=== PATIENT | female | born 1980 | race Caucasian/White ===

== ENCOUNTER 2016-08-17 06:22 | Day surgery (SDC) | payer OTHER ==
[2016-08-15 09:46] LABS: MANUAL DIFF NEEDED? NO; URINE MICRO REVIEW NEEDED? NO; URINE SOURCE CLEAN CATCH
[2016-08-15 10:12] LABS: BASO% 0.6 % (0.0-0.8); EOS# 0.21 X1000 (0.0-0.7); EOS% 2.6 % (0.0-10.0); HEMATOCRIT 39.3 % (37.0-47.0); HEMOGLOBIN 13.5 g/dL (12.0-16.0); IMM GRAN# 0.02 X1000 (0.0-0.04); IMM GRAN% 0.2 % (0.0-0.5); LYMPH# 2.62 X1000 (1.2-3.4); LYMPH% 32.2 % (20.5-51.1); MCH 30.6 PG (27-31); MCHC 34.4 g/dL (33-37); MCV 89.1 FL (81-99); MONO# 0.56 X1000 (0.11-0.59); MONO% 6.9 % (1.7-9.3); MPV 10.3 FL (7.4-10.4); NEUT% 57.5 % (42.2-75.2); PLT 324 X1000 (130-400); RBC 4.41 XMIL (4.2-5.4)
[2016-08-15 11:09] LABS: AGAP 13; ALBUMIN 4.2 g/dL (3.5-5.0); ALKALINE PHOSPHATASE 50 U/L (32-104); BUN 9 mg/dL (8-22); CALCIUM 9.7 mg/dL (8.8-10.2); CHLORIDE 100 mmol/L (98-107); COSMO 275; GOT 14 U/L (10-30); GPT 16 U/L (10-36); POTASSIUM 4.2 mmol/L (3.5-5.1); SODIUM 138 mmol/L (136-145); TCO2 25 mmol/L (25-35); TOTAL BILIRUBIN 0.28 mg/dL (0.20-1.00)
[2016-08-15 11:45] LABS: BILIRUBIN URINE NEGATIVE (NEGATIVE); BLOOD URINE NEGATIVE (NEGATIVE); COLOR YELLOW; GLUCOSE URINE NEGATIVE (NEGATIVE); LEUKOCYTES URINE NEGATIVE (NEGATIVE); NITRITE URINE NEGATIVE (NEGATIVE); PH URINE 5.5; PROTEIN URINE NEGATIVE (NEGATIVE); SP GRAVITY URINE 1.018; TURBIDITY URINE HAZY (CLEAR); UROBILINOGEN URINE NORMAL (NORMAL)
[2016-08-15 11:46] LABS: UR EPITHELIAL CELLS <10 /HPF (<10); URINE BACTERIA 1+ /HPF; URINE RBC <10 /HPF (<10); URINE WBC <10 /HPF (<10)
--- NOTE | 2016-08-15 12:01 | EKG Report ---
Test Performed on : 08/15/2016 09:51:43 AM Test Reason : PAT Blood Pressure : / mmHG Vent. Rate : 064 BPM Atrial Rate : 064 BPM P-R Int : 190 ms QRS Dur : 080 ms QT Int : 398 ms P-R-T Axes : 041 036 045 degrees QTc Int : 410 ms Normal sinus rhythm. Normal ECG No previous ECGs available Confirmed by Gavino MORENO, Girish Bahena ([id number]) on 08/15/2016 3:24:10 PM
[2016-08-17] MEDS ORDERED: REGLAN ONE (07:04)
[2016-08-17] MEDS ORDERED: LR 1,000 ML ONE (07:04)
[2016-08-17] MEDS ORDERED: PEPCID ONE (07:04)
[2016-08-17] MEDS ORDERED: KEFZOL 1 GM/D5W 50 ML ONE (07:04)
[2016-08-17] MEDS ORDERED: MARCAINE 0.25% PF/EPI 1:200,000 ONE (08:07)
[2016-08-17] MEDS ORDERED: ZOFRAN ONE (08:52)
[2016-08-17 09:35] VITALS: BP 105/71
--- NOTE | 2016-08-17 13:19 | OPERATIVE NOTE ---
PROCEDURE DATE: 08/17/2016 PREOPERATIVE DIAGNOSIS: Multiple anal condyloma and perineal condyloma. POSTOPERATIVE DIAGNOSIS: Multiple anal condyloma and perineal condyloma. PROCEDURE PERFORMED: Electrodesiccation. SURGEON: John Cohen MD DESCRIPTION OF PROCEDURE: The patient was brought to the operating room and, after satisfactory induction of IV and endotracheal anesthesia, she was placed into candy-cane stirrups. Her perineum was prepped and draped in the appropriate manner. Multiple anal condyloma were electrocauterized and scraped to the basement membrane. A total of 10 mL of Marcaine was injected into the subcu in the perianal area. A sterile dressing was applied. She was subsequently awakened and extubated in the operating room and transferred to recovery. Estimated blood loss was less than 5 mL.
[2016-08-17] MEDS ORDERED: DIPRIVAN 1% ONE (15:30)
[2016-08-17] MEDS ORDERED: FENTANYL ONE (15:30)
[2016-08-17] MEDS ORDERED: XYLOCAINE-MPF 2% ONE (16:29)
== END 2016-08-17 09:43 | disposition home or self-care (01) ==
LOC: OPS 06:22
PROVIDERS: ATTEND Surgery
DX: A63.0 Anogenital (venereal) warts (principal); I10 Essential (primary) hypertension; E11.9 Type 2 diabetes mellitus without complications
CPT/HCPCS: 80053; 81001; 84703; 85025; 93005; 93010; J0690; J2405; J3010; J7120